=== PATIENT | female | born 1980 | race Hispanic/Latino ===

== ENCOUNTER 2019-12-19 19:22 | Emergency (ER) | payer OTHER ==
[2019-12-19] MEDS ORDERED: IBUPROFEN 400 MG TAB ONE (19:54)
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
[2019-12-19 20:27] VITALS: TEMP 98
--- NOTE | 2019-12-19 20:27 | RAD REPORT ---
EXAM DESCRIPTION: RAD - Knee Left 3 View - 12/19/2019 8:04 pm CLINICAL HISTORY: Left knee pain status post injury FINDINGS: No fracture or dislocation is seen.
[2019-12-19 20:28] VITALS: BP 119/72; O2SAT 100
== END 2019-12-19 20:22 | disposition home or self-care (01) ==
LOC: ER 19:22
DX: M25.562 Pain in left knee (principal); W01.0XXA Fall on same level from slipping, tripping and stumbling without subsequent striking against object, initial encounter; Y93.01 Activity, walking, marching and hiking; Y92.9 Unspecified place or not applicable
CPT/HCPCS: 99284